=== PATIENT | female | born 1940 | race Caucasian/White ===

== ENCOUNTER 2020-11-27 15:33 | Emergency (ER) | payer MEDICARE ==
[~2020-11-27] VITALS: Ht 152.4 cm; Wt 76.7 kg
== END 2020-11-27 20:40 | disposition home or self-care (01) ==
LOC: ER 15:33
DX: U07.1 COVID-19 (principal); J45.909 Unspecified asthma, uncomplicated; R06.00 Dyspnea, unspecified; K44.9 Diaphragmatic hernia without obstruction or gangrene; J98.4 Other disorders of lung; Z79.899 Other long term (current) drug therapy
CPT/HCPCS: 36415; 71046; 71260; 85379; 99284-25; Q9967

== ENCOUNTER → 2020-11-27 | Outpatient (CLI) | payer MEDICARE ==
[~2020-11-27] MED LIST: ALBU3IS INH; ALBU90OI6 INH; ALBU90OI61 INH; BUDE6HFA INH; CALCAVITD PO; CETI10 PO; FLUSAL5005 IH; HYDCHL12.5 PO; Lasix20 MG PO; METO25ER PO; MONT10T; MONT10T PO; MULTI VITAMIN1 EACH PO; OXYB5 PO; POTASSIUM GLUC500 MG PO; VITAMIN B COMPLEX PO
[2020-11-27 13:09] LABS: BASOPHILS ABSOLUTE AUTO 0.01 K/mm3 (0.00-0.23); BASOPHILS PERCENT AUTO 0 % (0-2); EOSINOPHILS PERCENT AUTO 0 % (0-6); Hematocrit 39.3 % (33.0-51.0); IMMATURE GRAN ABSOLUTE AUTO 0.03 K/mm3 (0.00-0.10); IMMATURE GRAN PERCENT AUTO 1 % (0-1); LYMPHOCYTES ABSOLUTE AUTO 0.53 K/mm3 (0.84-5.20); LYMPHOCYTES PERCENT AUTO 9 % (21-46); MONOCYTES ABSOLUTE AUTO 0.44 K/mm3 (0.16-1.47); MONOCYTES PERCENT AUTO 7 % (4-13); Mean Corpuscular HGB 30.2 pg (26.0-34.0); Mean Corpuscular HGB Conc 33.1 g/dL (31.5-36.5); Mean Corpuscular Volume 91 fL (80-100); Mean Platelet Volume 10.3 fL (9.1-12.4); NEUTROPHILS ABSOLUTE AUTO 5.19 K/mm3 (1.96-9.15); NEUTROPHILS PERCENT AUTO 84 % (41-73); Platelet Count 154 K/mm3 (150-400); RDW Coefficient Variation 14.1 % (11.7-14.2); RDW Standard Deviation 47.6 fL (35.1-46.3)
[2020-11-27 13:27] LABS: Bun/Creatinine Ratio 11.4 (12.0-20.0); Calcium, Blood 8.2 mg/dL (8.5-10.1); Creatinine, Blood 1.05 mg/dL (0.40-1.00); Potassium, Blood 3.7 mmol/L (3.5-5.5); Thyroid Stimulating Hormone 1.002 uIU/mL (0.360-4.800)
== END | disposition home or self-care (01) ==
LOC: LAB EV 13:03 → LAB SHORT 13:03
PROVIDERS: Physician Assistant Surgical
DX: R06.00 Dyspnea, unspecified (principal); R53.83 Other fatigue
CPT/HCPCS: 80048; 83880; 84443; 85025; 85379

== ENCOUNTER 2024-07-20 07:42 | Day surgery (SDC) | payer OTHER ==
[~2024-07-20] VITALS: Ht 149.9 cm; Wt 75.4 kg
[~2024-07-20 07:42] MED LIST changes: +Balanced Salt Epinephrine Irrigation Solution 500 mL IR SCH; +Diazepam 2 MG Tab PO PRN; +Lidocaine HCl/Pf 1% 5 ML VIAL XX SCH; +Moxifloxacin HCL 0.5 MG/0.1 ML 0.4MLSYR RIGHTEYE SCH; +Ondansetron 4 MG SoluTab MM PRN; +PHENYLEPHRINE\\TROPICAMIDE\\TETRACAINE OPHTHALMIC DILATING SOLN RIGHTEYE PRN; +Povidone-Iodine 450 DROP/30 ML Solution ONE; +Povidone-Iodine 450 DROP/30 ML Solution RIGHTEYE SCH; +Tetracaine HCl/Pf 0.5% Opth Soln 4 ml ONE; +Triamcinolone Inj Susp 40 MG / ML 1ML Vial INJ SCH; +Triamcinolone Inj Susp 40 MG / ML 1ML Vial ONE; +diazePAM 2 MG,diazePAM 5 MG PO SCH
[2024-07-20] MEDS ORDERED: Lisinopril2.5 MG (08:57)
[2024-07-20] MEDS ORDERED: FLUT1DIS8 INH (08:58)
[2024-07-20] MEDS ORDERED: JARDIANCE25 MG PO (08:58)
[2024-07-20] MEDS ORDERED: MAGNESIUM OXID500 MG (09:00)
[2024-07-20] MEDS ORDERED: MULTIPLE VITAM1 EACH PO (09:01)
[2024-07-20] MEDS ORDERED: Diazepam 2 MG Tab ONE (09:06)
[2024-07-20] MEDS ORDERED: Diazepam 5 MG Tab ONE (09:07)
--- NOTE | 2024-07-20 09:22 | NUR ---
07/20/24 0922 Binta Hernandez ANXIETY 010 PER PATIENT
[2024-07-20] MEDS ORDERED: CALCIUM (09:32)
[2024-07-20] MEDS ORDERED: GARLIC (09:32)
[2024-07-20] MEDS ORDERED: LATA.005SO BOTHEYES (09:33)
[2024-07-20] MEDS ORDERED: FLUTICASONE-SA1 EAC9 INH (09:33)
--- NOTE | 2024-07-20 09:55 | NUR ---
07/20/24 0955 Leonor Childress VITAL SIGNS @ 0951 BP: 116/61 O2: 96 P: 66 BLOW BY OXYGEN AT 10 LITERS. PATIENT ALERT AND SHOWS NO S/S OF DISTRESS.
[2024-07-20 10:15] VITALS: BP 107/54
--- NOTE | 2024-07-20 10:22 | NUR ---
07/20/24 1022 Kelsi Ansari HEARING AID PLACED BACK IN RIGHT EAR. LEFT HEARING AID IN PLACE.
== END 2024-07-20 10:31 | disposition home or self-care (01) ==
LOC: ORSCSDS 07:42
PROVIDERS: Ophthalmology
PROC: 08RJ3JZ Replacement of Right Lens with Synthetic Substitute, Percutaneous Approach (ICD-10-PCS; principal; 2024-07-20 09:30)
DX: H25.811 Combined forms of age-related cataract, right eye (principal); H40.1131 Primary open-angle glaucoma, bilateral, mild stage; I12.9 Hypertensive chronic kidney disease with stage 1 through stage 4 chronic kidney disease, or unspecified chronic kidney disease; N18.9 Chronic kidney disease, unspecified; J45.909 Unspecified asthma, uncomplicated; Z79.84 Long term (current) use of oral hypoglycemic drugs; Z79.899 Other long term (current) drug therapy
CPT/HCPCS: A9270; J3301; V2632

== ENCOUNTER 2024-07-26 07:15 | Day surgery (SDC) | payer OTHER ==
[~2024-07-26] VITALS: Ht 149.9 cm; Wt 75.8 kg
[~2024-07-26 07:15] MED LIST changes: +CALCIUM; +FLUT1DIS8 INH; +FLUTICASONE-SA1 EAC9 INH; +GARLIC; +JARDIANCE25 MG PO; +LATA.005SO BOTHEYES; +Lisinopril2.5 MG; +MAGNESIUM OXID500 MG; +MULTIPLE VITAM1 EACH PO; +Moxifloxacin HCL 0.5 MG/0.1 ML 0.4MLSYR LEFTEYE SCH; -Moxifloxacin HCL 0.5 MG/0.1 ML 0.4MLSYR RIGHTEYE SCH; +PHENYLEPHRINE\\TROPICAMIDE\\TETRACAINE OPHTHALMIC DILATING SOLN LEFTEYE PRN; -PHENYLEPHRINE\\TROPICAMIDE\\TETRACAINE OPHTHALMIC DILATING SOLN RIGHTEYE PRN; +Povidone-Iodine 450 DROP/30 ML Solution LEFTEYE SCH; -Povidone-Iodine 450 DROP/30 ML Solution RIGHTEYE SCH
[2024-07-26] MEDS ORDERED: Diazepam 2 MG Tab ONE (08:00)
[2024-07-26] MEDS ORDERED: Diazepam 5 MG Tab ONE (08:01)
--- NOTE | 2024-07-26 08:58 | NUR ---
07/26/24 0858 Leonor Childress VITAL SIGNS AT 0851: BP:107/61 P:64 O2:99% BLOW-BY OXYGEN AT 10 LITERS, NO SIGNS OR SYMPTOMS OF DISTRESS. VSS.
[2024-07-26 09:16] VITALS: BP 105/62
== END 2024-07-26 09:27 | disposition home or self-care (01) ==
LOC: ORSCSDS 07:15
PROVIDERS: Ophthalmology
PROC: 08RK3JZ Replacement of Left Lens with Synthetic Substitute, Percutaneous Approach (ICD-10-PCS; principal; 2024-07-26 09:00)
DX: H25.812 Combined forms of age-related cataract, left eye (principal); Z96.1 Presence of intraocular lens; H40.1190 Primary open-angle glaucoma, unspecified eye, stage unspecified; J45.909 Unspecified asthma, uncomplicated; I12.9 Hypertensive chronic kidney disease with stage 1 through stage 4 chronic kidney disease, or unspecified chronic kidney disease; N18.9 Chronic kidney disease, unspecified; Z79.899 Other long term (current) drug therapy
CPT/HCPCS: A9270; J3301; V2632